=== PATIENT | female | born 1960 | race Hispanic/Latino ===

== ENCOUNTER → 2025-01-02 | Outpatient (CLI) | payer OTHER ==
--- NOTE | 2025-01-02 15:30 | HMCIMG ---
DEXA BONE DENSITY SURVEY REASON: Age-related osteoporosis without current pathological fracture COMPARISON: None TECHNIQUE: DEXA bone densitometry was performed in the lumbar spine and left hip. FINDINGS: Mean bone mass density in the spine is 0.82 mg centered square, T score -2.0, corresponding with osteopenia. Femoral neck T score of -1.6 and total proximal left femur T score -1.4 are also consistent with osteopenia. IMPRESSION: 1. Osteopenia indicating a moderate fracture risk.
== END | disposition home or self-care (01) ==
LOC: RAH 09:59
PROVIDERS: ATTEND Internal Medicine
DX: M85.89 Other specified disorders of bone density and structure, multiple sites (principal); M81.0 Age-related osteoporosis without current pathological fracture
CPT/HCPCS: 77080